=== PATIENT | male | born 1945 | race Caucasian/White ===

== ENCOUNTER 2018-05-06 18:28 | Emergency (ER) | payer BC, OTHER ==
[2018-05-06 18:42] VITALS: BMI 19.3
--- NOTE | 2018-05-06 18:59 | PDOC ---
History of Present Illness - General Chief Complaint: Pain Stated Complaint: BOTH LEG PAIN Time Seen by Provider: 05/06/18 18:31 History Source: Patient, Family ([id number]), Spouse Exam Limitations: No Limitations - History of Present Illness Initial Comments: 72 y/o male presenting to [facility] via private auto complaining of bilateral lower extremity pain. Worse in right calf. Acute on chronic problem for last month, acutely worse in past two weeks. Presenting to ER tonight with failure of symptoms to resolve. Denies overlying skin changes or trauma to the area. Denies coagulopathy or cancer history. PT has a h/o Parkinsons for past 11 years. Recent change in Carvadopa Levadopa. Also recently started 2 weeks ago Tamsulosin for possible BPH, pt unable to recall exact reason. Endorsing urinary frequency without burning, itching, hematuria, flank pain, suprapubic tenderness, abdominal pain, or fever. Started right after starting Tamsulosin. PCP: Dr. Meza ([phone]) Medical Hx: - Parksons - BPH? Pt uncertain why he is taking Tamsulosin. Surgical Hx: - Unknown umbilical surgery? Pt states it was for infection and performed many years ago. Past History - Past Medical History Allergies/Adverse Reactions: Allergies Allergy/AdvReac Type Severity Reaction Status Date / Time No Known Allergies Allergy Verified 05/06/18 18:42 Home Medications: Ambulatory Orders Methocarbamol [Robaxin -] 500 mg PO BID #14 tablet 05/06/18 COPD: No Disorders: Yes (BPH) Thyroid Disease: No Other medical history: Parkinson's - Immunization History Immunization Up to Date: Yes - Suicide/Smoking/Psychosocial Hx Smoking History: Never smoked Have you smoked in the past 12 months: No Information on smoking cessation initiated: No Hx Alcohol Use: No Drug/Substance Use Hx: No Substance Use Type: None Review of Systems - Review of Systems Able to Perform ROS?: Yes Is the patient limited Panamanian proficient: No Constitutional: No: Chills, Diaphoresis, Fever Respiratory: No: Shortness of Breath Cardiac (ROS): No: Chest Pain ABD/GI: No: Constipated, Diarrhea, Nausea, Vomiting : Yes: Frequency. No: Burning, Dysuria, Discharge, Flank Pain, Hematuria Musculoskeletal: Yes: See HPI, Muscle Pain Integumentary: No: Bruising, Rash Neurological: No: Weakness Hematologic/Lymphatic: No: Easy Bleeding, Easy Bruising *Physical Exam - Vital Signs Last Vital Signs Temp Pulse Resp BP Pulse Ox 98.1 F 98 H 16 171/97 98 05/06/18 18:32 05/06/18 18:32 05/06/18 18:32 05/06/18 18:32 05/06/18 18:32 - Physical Exam Comments: Constitutional: Well-developed, well-nourished, thin male in no acute distress. Found semi-fowlers in hospital bed. Alert and oriented x4. Answered all questions appropriately and completely. Speech was non-labored, non-pressured. Head: Normocephalic. No obvious external signs of trauma. Eyes: PERRL. EOMI. Sclerae white. Conjunctiva moist and not injected. EARS: External auditory canals and tympanic membranes clear, hearing grossly intact. NOSE: No nasal discharge. THROAT: Oral cavity and pharynx normal. No inflammation, swelling, exudate, or lesions. Teeth and gingiva in good general condition. ENT: EAMs normal. Hearing normal. Nasal mucosa normal. Lips, gums and oropharynx: pink, moist, not injected, no lesions, no ulcerations Neck: Supple, trachea is midline. No JVD or thyromegaly. HEENT: Normocephalic. No obvious external signs of trauma. Hearing grossly normal. No nasal discharge. Neck is supple, trachea is midline. No JVD. Cardiovascular: Regular rate and regular rhythm. No murmur, rubs, clicks, or gallops. Peripheral pulses: Radial pulses full. Respiratory: Breathing unlabored. Equal chest rise and fall. Clear to auscultation bilaterally. No stridor, no wheezing, no rhonchi. Gastrointestinal: abdomen is soft, non-tender, non-distended. Neuro: Alert and oriented. Moving all four extremities spontaneously. Intact sensation to all four extremities. Lower extremity proximal and distal strength 5/5, - equal and symmetric. Plantar flexion and dorsiflexion 5/5. Skin: Warm, dry, and intact. No bruising, rashes, or other lesions. No palpable nodules. : No R or L CVA tenderness. Psych: Affect: appropriate. Mood: normal. ED Treatment Course - LABORATORY CBC & Chemistry Diagram: 05/06/18 19:20 - RADIOLOGY Radiograph Interpretation: Bilateral Lower Extremity Venous Doppler: Fito Christie MD wrote on May 06, 2018 at 10:17 PM: Referring Physician: BISHOP WADE Patient Name: TIFFANY ORR THIS IS A PRELIMINARY REPORT FROM [facility] EXAM: Bilateral lower extremity venous duplex ultrasound IMAGES: 76 DATE OF EXAM: 2018-05-06 20:10:40 REASON FOR EXAM: Rule out DVT COMPARISON: None. FINDINGS: No evidence for deep venous thrombosis. No Shore's cyst. THIS DOCUMENT HAS BEEN ELECTRONICALLY SIGNED Fito Christie MD 05/06/2018 22:14 EST Medical Decision Making - Medical Decision Making *Reviewed nursing notes and prior visit documentation. 72 y/o male complaining of one month of bilateral lower extremity pain, worse in R calf today. H/o Parkinsons. Recently started on Tamsulosin. Afebrile. Vitals unremarkable for hypotension or tachycardia. Suspect electrolyte abnormality versus muscle cramping. Low suspicion for DVT or neurological weakness. Will obtain BMP, Mag, Phos, and bilateral lower extremity duplex U/S. Tylenol ordered for relief. No electrolyte derangement. No hyperglycemia. GFR >60. No DVT or Bakers cyst noted on U/S. Robaxin ordered for symptom relief. Discussed imaging and laboratory results with pt. Answered all questions. Provided return precautions. Pt expressed verbal understanding and agreement with plan to discharge home with outpatient follow up. Prescribed Robaxin to [facility]. Pt scheduled to follow up with his neurologist tomorrow morning. Encouraged family to keep pts appointment and to discuss better management of this pain. *DC/Admit/Observation/Transfer Diagnosis at time of Disposition: Muscle spasm, Restless leg syndrome - Discharge Dispostion Disposition: HOME Condition at time of disposition: Good Decision to Admit order: No - Prescriptions Prescriptions: Methocarbamol [Robaxin -] 500 mg PO BID #14 tablet - Referrals Referrals: Dinesh Meza [Primary Care Provider] - - Patient Instructions Printed Discharge Instructions: Restless Legs Syndrome (Alternative Therapy), Muscle Strain, Restless Legs Syndrome Additional Instructions: Please follow up with your neurologist at your previously schedule appointment tomorrow morning. I have sent a prescription for Robaxin to the [facility] on [address]. Take as directed on the bottle. You can also take over the counter Tylenol or Advil as needed for pain. Take as directed on the package insert. Do not exceed the recommended dosage. Go to the nearest emergency department if your condition worsens or you feel like you need additional emergency evaluation. Print Language: LITHUANIAN - Post Discharge Activity
[2018-05-06] MEDS ORDERED: ACETAMINOPHEN 325 MG TABLET (FP) PO ONE (19:05)
[2018-05-06] MEDS ORDERED: ACETAMINOPHEN 325 MG TABLET (FP) ONE (19:10)
--- NOTE | 2018-05-06 19:20 | PDOC ---
Attending Attestation - Resident Resident Name: Zenon Cordova - ED Attending Attestation I have performed the following: I have examined & evaluated the patient, The case was reviewed & discussed with the resident, I agree w/resident's findings & plan - HPI HPI: 05/06/18 19:17 Christine 72 y/o M with h/o Parkinsons disease and BPH p/w 1 month of worsening BLE calf and leg pain, recently taken of fmeds and also started on flomax for BPH ~2 weeks ago. - Physicial Exam PE: 05/06/18 19:18 NAD, thin and frail appearing, MMM, nl conjunctiva, anicteric; neck supple. lungs clear, RRR, abdomen soft nontender. BADILLO x4, no focal neuro deficits. + bilateral calf tenderness, No peripheral edema. normal color for ethnicity, WWP. no tremors. - Medical Decision Making 05/06/18 19:18 72 YOM with Parkinsons, BPH p/w BLE calf/leg pain and weakness. vitals notable for HR in 90s and mild hypertension, but also appears in pain. will recheck. given tylenol for pain plan for duplex to r/o DVT in bilateral legs, basic labs and check lytes. urinary frequency, but no systemic sx or urgency/abdominal sx to suggest UTI, so defer testing and low yield. this is also in the setting of initiating flomax and h/o BPH signed out to Dr. Freeman pending labs, US and reeval, ambulation trial and ultimate dispo. 05/06/18 19:19
[2018-05-06 19:49] LABS: ANION GAP 8 MMOL/L (8-16); BLOOD UREA NITROGEN 19 mg/dL (7-18); CHLORIDE 109 mmol/L (98-107); CO2 28 mmol/L (21-32); CREATININE 0.7 mg/dL (0.7-1.3); GLUCOSE,RANDOM 106 mg/dL (74-106); MAGNESIUM 2.4 mg/dL (1.8-2.4); PHOSPHOROUS 2.5 mg/dL (2.5-4.9); SODIUM 145 mmol/L (136-145)
[2018-05-06] MEDS ORDERED: METHOCARBAMOL 500 MG TABLET PO ONE (21:50)
[2018-05-06] MEDS ORDERED: IBUPROFEN 600 MG TABLET (FP) PO ONE ×2 (21:52→22:06)
--- NOTE | 2018-05-06 21:53 | PDOC ---
*Physical Exam - Vital Signs Last Vital Signs Temp Pulse Resp BP Pulse Ox 98.1 F 98 H 16 171/97 98 05/06/18 18:32 05/06/18 18:32 05/06/18 18:32 05/06/18 18:32 05/06/18 18:32 ED Treatment Course - LABORATORY CBC & Chemistry Diagram: 05/06/18 19:20 - ADDITIONAL ORDERS Additional order review: Laboratory Results 05/06/18 19:20 Sodium 145 Potassium 4.0 Chloride 109 H Carbon Dioxide 28 Anion Gap 8 BUN 19 H Creatinine 0.7 Creat Clearance w eGFR > 60 Random Glucose 106 Calcium 9.0 Phosphorus 2.5 Magnesium 2.4 - Medications Given in the ED: ED Medications Discontinued Medications Generic Name Dose Route Start Last Admin Trade Name Narcisa PRN Reason Stop Dose Admin Acetaminophen 650 mg 05/06/18 19:05 05/06/18 19:13 Tylenol - PO 05/06/18 19:06 650 mg ONCE ONE Administration Medical Decision Making - Medical Decision Making 05/06/18 23:10 Patient Name: TIFFANY ORR THIS IS A PRELIMINARY REPORT FROM [facility] EXAM: Bilateral lower extremity venous duplex ultrasound IMAGES: 76 DATE OF EXAM: 2018-05-06 20:10:40 REASON FOR EXAM: Rule out DVT COMPARISON: None. FINDINGS: No evidence for deep venous thrombosis. No Shore's cyst. 05/06/18 23:11 Pt has severe muscle spasm of the left outer thigh. He also has FROM of hips and knees and this is unlikely to be arthritic pain. *DC/Admit/Observation/Transfer Diagnosis at time of Disposition: Muscle spasm, Restless leg syndrome - Discharge Dispostion Disposition: HOME Condition at time of disposition: Good - Prescriptions Prescriptions: Methocarbamol [Robaxin -] 500 mg PO BID #14 tablet - Referrals Referrals: Dinesh Meza [Primary Care Provider] - - Patient Instructions Printed Discharge Instructions: Restless Legs Syndrome (Alternative Therapy), Muscle Strain, Restless Legs Syndrome Additional Instructions: Please follow up with your neurologist at your previously schedule appointment tomorrow morning. I have sent a prescription for Robaxin to the [facility] on [address]. Take as directed on the bottle. You can also take over the counter Tylenol or Advil as needed for pain. Take as directed on the package insert. Do not exceed the recommended dosage. Go to the nearest emergency department if your condition worsens or you feel like you need additional emergency evaluation. Print Language: KAZAKH - Post Discharge Activity
[2018-05-06] MEDS ORDERED: METHOCARBAMOL 500 MG TABLET ONE (22:06)
[2018-05-06 23:10] VITALS: BP 145/67; PULSE 83; TEMP 98.2
== END 2018-05-06 23:10 | disposition home or self-care (01) ==
LOC: JER 18:28
DX: M62.838 Other muscle spasm (principal); G25.81 Restless legs syndrome; G20 Parkinson's disease; N40.0 Benign prostatic hyperplasia without lower urinary tract symptoms
CPT/HCPCS: 36415; 80048; 83735; 84100; 93970-TC; 99282-25

== ENCOUNTER 2022-07-21 11:31 | Emergency (ER) | payer BC, OTHER ==
[2022-07-21 11:45] VITALS: BP 137/62; PULSE 73; RESP 16; TEMP 98.2; BMI 17.2
[2022-07-21 13:42] LABS: CALCIUM OXALATE CRYSTALS FEW /hpf (NONE SEEN)
== END 2022-07-21 14:23 | disposition home or self-care (01) ==
LOC: EDBD 11:31 → FER 11:31
DX: T83.091A Other mechanical complication of indwelling urethral catheter, initial encounter (principal)
CPT/HCPCS: 81003; 81015; 87086; 87186; 99283-25